=== PATIENT | female | born 1935 | race Caucasian/White ===

== ENCOUNTER → 2019-09-23 | Outpatient (CLI) | payer OTHER | LOC: SJCVC 14:41 | DX: I25.10 Atherosclerotic heart disease of native coronary artery without angina pectoris (principal); I10 Essential (primary) hypertension; E78.5 Hyperlipidemia, unspecified; Z95.1 Presence of aortocoronary bypass graft ==

== ENCOUNTER → 2020-02-26 | Outpatient (CLI) | payer OTHER | LOC: SJCVCIMAG 10:05 | PROVIDERS: ATTEND Internal Medicine | DX: I08.1 Rheumatic disorders of both mitral and tricuspid valves (principal); I27.20 Pulmonary hypertension, unspecified; I25.810 Atherosclerosis of coronary artery bypass graft(s) without angina pectoris; I10 Essential (primary) hypertension; E78.5 Hyperlipidemia, unspecified; E78.00 Pure hypercholesterolemia, unspecified; Z79.899 Other long term (current) drug therapy; Z95.1 Presence of aortocoronary bypass graft ==

== ENCOUNTER → 2020-03-09 | Outpatient (CLI) | payer OTHER | LOC: SJCVCIMAG 08:36 | PROVIDERS: ATTEND Internal Medicine | DX: I49.3 Ventricular premature depolarization (principal); I25.10 Atherosclerotic heart disease of native coronary artery without angina pectoris; I10 Essential (primary) hypertension; E78.5 Hyperlipidemia, unspecified; Z79.899 Other long term (current) drug therapy; Z88.2 Allergy status to sulfonamides ==

== ENCOUNTER → 2020-08-26 | Outpatient (CLI) | payer OTHER | LOC: SJCVC 10:16 | PROVIDERS: ATTEND Internal Medicine | DX: I25.10 Atherosclerotic heart disease of native coronary artery without angina pectoris (principal); I10 Essential (primary) hypertension; E78.5 Hyperlipidemia, unspecified; Z95.1 Presence of aortocoronary bypass graft; Z79.82 Long term (current) use of aspirin; Z79.899 Other long term (current) drug therapy ==

== ENCOUNTER → 2020-10-16 | Outpatient (CLI) | payer OTHER | LOC: LAB 14:26 | PROVIDERS: ATTEND Internal Medicine | DX: R42 Dizziness and giddiness (principal); Z20.822 Contact with and (suspected) exposure to COVID-19 ==

== ENCOUNTER → 2020-10-16 | Outpatient (CLI) | payer OTHER | LOC: SJCVC 13:25 | PROVIDERS: ATTEND Internal Medicine | DX: I25.10 Atherosclerotic heart disease of native coronary artery without angina pectoris (principal); I10 Essential (primary) hypertension; E78.5 Hyperlipidemia, unspecified; I65.23 Occlusion and stenosis of bilateral carotid arteries; R42 Dizziness and giddiness; E78.00 Pure hypercholesterolemia, unspecified; Z79.82 Long term (current) use of aspirin; Z79.899 Other long term (current) drug therapy; Z95.1 Presence of aortocoronary bypass graft; Z88.1 Allergy status to other antibiotic agents; Z88.2 Allergy status to sulfonamides ==

== ENCOUNTER → 2020-11-19 | Outpatient (CLI) | payer OTHER | LOC: SJCVCIMAG 09:17 | PROVIDERS: ATTEND Internal Medicine | DX: I65.23 Occlusion and stenosis of bilateral carotid arteries (principal); I25.10 Atherosclerotic heart disease of native coronary artery without angina pectoris; I10 Essential (primary) hypertension; E78.5 Hyperlipidemia, unspecified; R42 Dizziness and giddiness; I49.3 Ventricular premature depolarization; E78.00 Pure hypercholesterolemia, unspecified; Z95.1 Presence of aortocoronary bypass graft; Z90.49 Acquired absence of other specified parts of digestive tract; Z90.710 Acquired absence of both cervix and uterus; Z98.890 Other specified postprocedural states; Z88.8 Allergy status to other drugs, medicaments and biological substances; Z79.82 Long term (current) use of aspirin; Z79.899 Other long term (current) drug therapy ==

== ENCOUNTER → 2021-02-10 | Outpatient (CLI) | payer OTHER | LOC: SJCVC 16:54 | PROVIDERS: ATTEND Internal Medicine | DX: I11.9 Hypertensive heart disease without heart failure (principal); I25.10 Atherosclerotic heart disease of native coronary artery without angina pectoris; I10 Essential (primary) hypertension; E78.5 Hyperlipidemia, unspecified; I65.23 Occlusion and stenosis of bilateral carotid arteries; R42 Dizziness and giddiness; I49.3 Ventricular premature depolarization; K21.9 Gastro-esophageal reflux disease without esophagitis; Z95.1 Presence of aortocoronary bypass graft; R00.2 Palpitations; R07.89 Other chest pain; Z88.2 Allergy status to sulfonamides; Z88.8 Allergy status to other drugs, medicaments and biological substances; Z79.82 Long term (current) use of aspirin; Z79.899 Other long term (current) drug therapy ==

== ENCOUNTER → 2021-05-28 | Outpatient (CLI) | payer OTHER | LOC: SJCVC 10:55 | PROVIDERS: ATTEND Internal Medicine | DX: R94.31 Abnormal electrocardiogram [ECG] [EKG] (principal); I25.10 Atherosclerotic heart disease of native coronary artery without angina pectoris; I10 Essential (primary) hypertension; E78.5 Hyperlipidemia, unspecified; I65.23 Occlusion and stenosis of bilateral carotid arteries; I49.3 Ventricular premature depolarization; K21.9 Gastro-esophageal reflux disease without esophagitis; Z95.1 Presence of aortocoronary bypass graft; Z79.82 Long term (current) use of aspirin; Z88.2 Allergy status to sulfonamides; Z88.1 Allergy status to other antibiotic agents ==

== ENCOUNTER → 2021-06-16 | Outpatient (CLI) | payer OTHER ==
[~2021-06-16] VITALS: Ht 157.5 cm; Wt 68.0 kg
[~2021-06-16] MED LIST: ASA81BEC PO; CARVEDILOL12.5 MG PO; KLOR-CON 10 ER10 MEQ PO; LIPITOR80 MG PO; NEXIUM 40 MG CA40 M1 PO; NORVASC 2.5 MG2.5 M1 PO; SLOW MAGNESIUM PO; VESICARE 5 MG TA5 MG PO; XANAX 0.5 MG0.5 M1 PO; ZESTRIL2.5 MG PO
--- NOTE | ~2021-06-16 | P ---
[facility] [place] [address] PROCEDURE REPORT Name: FRANCHESCA MOCK Room #: REG ANTOINE CarrilloToni#: [id number] Admission: 06/16/21 Attend Phys: Raghav King Discharge: Date of : 35 Report #: [id number] THIS REPORT FOR: cc: FAM - Family physician unknown FAM - Family physician unknown Raghav Nguyen MD ~ cc: Cheryl Ramirez DATE OF SERVICE: 06/16/2021 PROCEDURE PERFORMED: Upper endoscopy with biopsies. HISTORY OF PRESENT ILLNESS: The patient is an 85-year-old female who was seen by myself for the first time in the office on 06/01/2021 for midepigastric abdominal pain. Pain has been ongoing for several months, intermittent in nature. She denies any dysphagia or odynophagia. She has been on Nexium b.i.d. for many years for history of reflux disease. She underwent a PIPIDA scan that was normal and no reproduction of her symptoms were noted during CCK injection. Last upper endoscopy greater than 5 years ago. She does report early satiety. We proceeded with a CT scan of the abdomen and pelvis on 06/08/2021, which showed moderate sized hiatal hernia, otherwise no acute process in the abdomen. DESCRIPTION OF PROCEDURE: The risks and benefits of the procedure were explained to the patient, those risks including, but not limited to bleeding, perforation, and the risk of sedation. She understood these risks and gave informed consent. Sedation was given using propofol per anesthesia. Next, using a standard Olympus upper endoscope, the scope was placed in the patient's mouth and advanced under direct vision through the esophagus, stomach, and into the second portion of the duodenum. The esophagus was normal throughout. The GE junction was normal. Upon entering the stomach, a medium-sized hiatal hernia was noted. Mild gastritis was noted in the gastric body. Biopsies were obtained. No evidence of ulcerations or erosions. The gastric antrum was normal. The pylorus was normal and patent. The duodenal bulb, first and second portion were all normal. The scope was then withdrawn and the procedure terminated. The patient tolerated the procedure well. IMPRESSION: 1. Medium-sized hiatal hernia. 2. Mild gastritis. 3. Otherwise, normal upper endoscopy. RECOMMENDATIONS: 1. Await biopsy results. 2. Continue b.i.d. PPI therapy. 3. The patient's symptoms may be secondary to medium-sized hiatal hernia. At this time, I would recommend also a trial of Levsin on a p.r.n. basis as this [address] [address] PROCEDURE REPORT Name: FRANCHESCA MOCK Room #: REG Darian Hayward#: [id number] Admission: 06/16/21 Attend Phys: Raghav King Discharge: Date of : 35 Report #: [id number] may be helpful, may consider ultrasound of the abdomen with Dopplers. 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 4. Could consider possible hiatal hernia repair in the future. Thank you for allowing me to participate in her care. By: 0925 [id number] Raghav Nguyen MD /nt
--- NOTE | 2021-06-21 08:06 | PATH ---
[facility] [address] [place] [address] PATHOLOGY RPT PROCEDURE Name: FRANCHESCA MOCK Room #: REG DINAHDarian Carrillo.#: [id number] Admission: 06/16/21 Date of : 35 Discharge: Report #: [id number] Path Case #: [id number] [facility] Accession Number: [id number] . 01 Material submitted: . stomach - GASTRITIS BIOPSY- RULE OUT H. PYLORI. Modifiers: GASTRIC . 01 Clinical history: . DTS/EGD/HEARTBURN HIATAL HERNIA, GASTRITIS . 02 Diagnosis: Gastric mucosa, gastritis biopsy: - Mild inactive chronic gastritis. - H. pylori immunohistochemical stain is negative. (SCA:pit; 06/18/2021) QTP 06/18/2021 1444 Local . 02 Electronically signed: . Martínez Campbell DO, Pathologist NPI- [id number] . 01 Gross description: . The specimen is submitted in formalin, labeled "[place], [place], gastritis Bx R/O H. pylori". Received are 3 segments of pale crooks tissue ranging in size from 0.3 to 0.4 cm in maximum dimensions. The specimen is submitted entirely in cassette A1. ([facility]; 06/17/2021) NRI/NRI 06/17/2021 1559 Local . 02 Pathologist provided ICD-10: K29.50 . 02 CPT . 584252, [id number] Specimen Comment: A courtesy copy of this report has been sent to [phone] Specimen Comment: Report sent to Performed at: [address] [address] [id number] MD Anjel Santos MD Phone: [phone] Performed at: [address] [facility] [address] [id number] MD Carrillo Pedersen MD Phone: [phone]
== END | disposition home or self-care (01) ==
LOC: GI 08:11
PROVIDERS: ATTEND Specialist
DX: R10.13 Epigastric pain (principal); K29.50 Unspecified chronic gastritis without bleeding; K44.9 Diaphragmatic hernia without obstruction or gangrene; K21.9 Gastro-esophageal reflux disease without esophagitis; I10 Essential (primary) hypertension; E78.5 Hyperlipidemia, unspecified; Z98.890 Other specified postprocedural states; Z79.899 Other long term (current) drug therapy; Z20.822 Contact with and (suspected) exposure to COVID-19; Z95.1 Presence of aortocoronary bypass graft; Z90.710 Acquired absence of both cervix and uterus; Z90.49 Acquired absence of other specified parts of digestive tract; Z88.2 Allergy status to sulfonamides; Z91.041 Radiographic dye allergy status; Z88.8 Allergy status to other drugs, medicaments and biological substances
CPT/HCPCS: 62110; 62900